=== PATIENT | female | born 1970 | race Caucasian/White ===

== ENCOUNTER 2021-01-20 22:58 | Emergency (ER) | payer OTHER ==
--- NOTE | 2021-01-20 23:14 | EDM.PDOC ---
ED HPI GENERAL MEDICAL PROBLEM - General Stated Complaint: LEFT SIDED CRAMPING Time Seen by Provider: 01/20/21 23:14 Source of Information: Reports: Patient History Limitations: Reports: No Limitations - History of Present Illness INITIAL COMMENTS - FREE TEXT/NARRATIVE: 51-year-old female who reports on Thursday late morning and early afternoon she developed cramping and sharp and stabbing pain in her left mid back, flank and lateral abdomen and she started having more severe pain that seemed to wrap around from her flank area to her left abdominal area. It also seemed to be somewhat colicky in nature. She felt that she had to urinate more frequently but did not notice any blood in her urine. She has had small bowel movements but she has had no blood in her bowel movements. There has been no nausea or vomiting. The pain is currently a 7/10 with sharp spikes in her pain intermittently he states that she also has pain in her right mid to lower back that is worse with movement is somewhat different than the pain in her left side. The pain in her left side is somewhat worse with movement but seems to come and go on its own. No fevers or chills. She has been eating and drinking normally. No trauma to the area. No cough. No shortness of breath. No rashes. There are no other associated signs or symptoms. There are no other modifying factors. 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.) Left Abdomen Pain Score (Numeric/FACES): 9 - Related Data Allergies Allergy/AdvReac Type Severity Reaction Status Date / Time No Known Allergies Allergy Verified 01/20/21 23:13 Home Meds: Home Meds Ketotifen [Ketotifen 0.025% Ophth Soln] 2 drop EYEBOTH BID PRN 01/20/21 [History] Loratadine 10 mg PO DAILY 01/20/21 [History] Losartan [Cozaar] 100 mg PO DAILY 01/20/21 [History] Potassium Chloride 2 tab PO BID 01/20/21 [History] Triamcinolone Acetonide [Triamcinolone Acetonide 0.1% Crm] 1 each TOP DAILY PRN 01/20/21 [History] amLODIPine Besylate [Norvasc] 10 mg PO DAILY 01/20/21 [History] atorvaSTATin Calcium [Lipitor] 10 mg PO BEDTIME 01/20/21 [History] hydroCHLOROthiazide [Hydrochlorothiazide] 25 mg PO DAILY 01/20/21 [History] metFORMIN [Glucophage] 500 mg PO BID 01/20/21 [History] Tamsulosin [Tamsulosin 24 Hr] 0.4 mg PO DAILY #7 cap.er 01/21/21 [Rx] Past Medical History Cardiovascular History: Reports: High Cholesterol, Hypertension Endocrine/Metabolic History: Reports: Diabetes, Type II, Obesity/BMI 30+ - Past Surgical History HEENT Surgical History: Reports: Oral Surgery Social & Family History - Tobacco Use Tobacco Use Status *Q: Unknown Ever Used Tobacco (Nonsmoker.) - Alcohol Use Alcohol Use History: No - Living Situation & Occupation Occupation: Employed (Works at [employer]) ED ROS GENERAL - Review of Systems Review Of Systems: See Below Constitutional: Denies: Fever, Chills HEENT: Denies: Throat Pain, Throat Swelling Respiratory: Denies: Shortness of Breath, Cough Cardiovascular: Denies: Chest Pain, Palpitations GI/Abdominal: Reports: Abdominal Pain. Denies: Bloody Stool, Diarrhea, Nausea, Vomiting : Reports: Flank Pain, Frequency. Denies: Dysuria Musculoskeletal: Reports: Back Pain. Denies: Neck Pain Skin: Denies: Diaphoresis, Rash Neurological: Denies: Dizziness, Headache Psychiatric: Denies: Anxiety Hematologic/Lymphatic: Denies: Easy Bleeding, Easy Bruising ED EXAM, GI/ABD - Physical Exam Exam: See Below Exam Limited By: No Limitations General Appearance: Alert, Moderate Distress (Appears in some pain. Nontoxic appearing.), Obese Eyes: Bilateral: Normal Appearance, EOMI Ears: Normal External Exam, Hearing Grossly Normal Nose: Normal Inspection, Normal Mucosa, No Blood Throat/Mouth: Normal Inspection, Normal Oropharynx, Normal Voice, No Airway Compromise Head: Atraumatic, Normocephalic Neck: Normal Inspection, Supple, Non-Tender, Full Range of Motion Respiratory/Chest: No Respiratory Distress, Lungs Clear, Normal Breath Sounds, No Accessory Muscle Use, Chest Non-Tender Cardiovascular: Normal Peripheral Pulses, Regular Rate, Rhythm, No Murmur GI/Abdominal Exam: Normal Bowel Sounds, Soft, No Mass, Tender (Tender in left upper quadrant and left flank and left mid abdomen.). No: Guarding, Rebound Back Exam: Normal Inspection, Full Range of Motion. No: CVA Tenderness (R), CVA Tenderness (L) Extremities: Normal Inspection, Normal Range of Motion, Non-Tender, No Pedal Edema, Normal Capillary Refill Neurological: Alert, Oriented, CN II-XII Intact, Normal Cognition, No Motor/Sens ory Deficits Psychiatric: Normal Affect Skin Exam: Warm, Dry, Intact, Normal Color, No Rash Course - Vital Signs Last Recorded V/S: Last Vital Signs Temp 37.2 C 01/20/21 23:00 Pulse 90 01/20/21 23:00 Resp 18 01/20/21 23:00 BP 158/95 H 01/20/21 23:00 Pulse Ox 99 01/20/21 23:00 - Orders/Labs/Meds Orders: Active Orders 24 hr Category Date Time Status Abdomen Pelvis wo Cont [CT] Stat Exams 01/21/21 00:03 Taken Sodium Chloride 0.9% [Saline Flush] Med 01/20/21 23:52 Active 10 ml FLUSH ASDIRECTED PRN Peripheral IV Insertion Adult [OM.PC] Routine Oth 01/20/21 23:52 Ordered Medication Orders Sodium Chloride (Sodium Chloride 0.9% 10 Ml Syringe) 10 ml FLUSH ASDIRECTED PRN PRN Reason: Keep Vein Open Labs: Laboratory Tests 01/20/21 01/20/21 01/20/21 Range/Units 00:01 00:01 00:01 WBC 8.7 (3.0-10.3) x10-3/uL RBC 4.70 (3.60-5.20) x10(6)uL Hgb 12.8 (11.4-15.5) g/dL Hct 38.3 (34.2-48.2) % MCV 81.4 (76.7-100.5) fL MCH 27.3 (23.9-33.9) pg MCHC 33.6 (31.9-34.8) g/dL RDW 14.0 (12.3-16.5) % Plt Count 214 (151-488) x10(3)uL MPV 7.8 (7.1-12.4) fL Neut % (Auto) 76.4 H (30.8-76.2) % Lymph % (Auto) 14.7 L (18.4-52.1) % [place] % (Auto) 6.8 (4.4-15.7) % Eos % (Auto) 1.9 (0.6-8.1) % Baso % (Auto) 0.2 (0.2-1.5) % Neut # (Auto) 6.7 H (1.5-6.3) x10-3/uL Lymph # (Auto) 1.3 (1.0-4.4) x10-3/uL [place] # (Auto) 0.6 (0.3-1.0) x10-3/uL Eos # (Auto) 0.2 (0.0-0.8) x10-3/uL Baso # (Auto) 0.0 (0.0-0.1) x10-3/uL Sodium 143 (135-145) mmol/L Potassium 3.5 (3.5-5.3) mmol/L Chloride 106 (100-110) mmol/L Carbon Dioxide 27 (21-32) mmol/L BUN 14 (7-18) mg/dL Creatinine 1.3 H (0.55-1.02) mg/dL Est Cr Clr Drug Dosing TNP Estimated GFR (MDRD) 43 L (>60) BUN/Creatinine Ratio 10.8 (9-20) Glucose 145 H (80-116) mg/dL Calcium 9.0 (8.6-10.2) mg/dL Total Bilirubin 0.5 (0.1-1.3) mg/dL AST 32 H (5-25) IU/L ALT 54 H (12-36) U/L Alkaline Phosphatase 88 (56-112) IU/L C-Reactive Protein 0.5 (0.5-0.9) mg/dL Total Protein 6.9 (6.0-8.0) g/dL Albumin 3.4 L (3.5-5.2) g/dL Globulin 3.5 g/dL Albumin/Globulin Ratio 1.0 Lipase 95 (73-393) U/L Urine Color (YELLOW) Urine Appearance (CLEAR) Urine pH (5.0-6.5) Ur Specific [place] (1.010-1.025) Urine Protein (NEGATIVE) mg/dL Urine Glucose (UA) (NORMAL) mg/dL Urine Ketones (NEGATIVE) mg/dL Urine Occult Blood (NEGATIVE) Urine Nitrite (NEGATIVE) Urine Bilirubin (NEGATIVE) Urine Urobilinogen (NEGATIVE) mg/dL Ur Leukocyte Esterase (NEGATIVE) Urine RBC (0-5) Urine WBC (0-5) Ur Squamous Epith Cells (NS,R,O) Urine Bacteria (NS) Urine HCG, Qual (NEGATIVE) 01/20/21 01/20/21 Range/Units 23:15 23:15 WBC (3.0-10.3) x10-3/uL RBC (3.60-5.20) x10(6)uL Hgb (11.4-15.5) g/dL Hct (34.2-48.2) % MCV (76.7-100.5) fL MCH (23.9-33.9) pg MCHC (31.9-34.8) g/dL RDW (12.3-16.5) % Plt Count (151-488) x10(3)uL MPV (7.1-12.4) fL Neut % (Auto) (30.8-76.2) % Lymph % (Auto) (18.4-52.1) % [place] % (Auto) (4.4-15.7) % Eos % (Auto) (0.6-8.1) % Baso % (Auto) (0.2-1.5) % Neut # (Auto) (1.5-6.3) x10-3/uL Lymph # (Auto) (1.0-4.4) x10-3/uL [place] # (Auto) (0.3-1.0) x10-3/uL Eos # (Auto) (0.0-0.8) x10-3/uL Baso # (Auto) (0.0-0.1) x10-3/uL Sodium (135-145) mmol/L Potassium (3.5-5.3) mmol/L Chloride (100-110) mmol/L Carbon Dioxide (21-32) mmol/L BUN (7-18) mg/dL Creatinine (0.55-1.02) mg/dL Est Cr Clr Drug Dosing Estimated GFR (MDRD) (>60) BUN/Creatinine Ratio (9-20) Glucose (80-116) mg/dL Calcium (8.6-10.2) mg/dL Total Bilirubin (0.1-1.3) mg/dL AST (5-25) IU/L ALT (12-36) U/L Alkaline Phosphatase (56-112) IU/L C-Reactive Protein (0.5-0.9) mg/dL Total Protein (6.0-8.0) g/dL Albumin (3.5-5.2) g/dL Globulin g/dL Albumin/Globulin Ratio Lipase (73-393) U/L Urine Color Yellow (YELLOW) Urine Appearance Slightly cloudy (CLEAR) Urine pH 8.0 H (5.0-6.5) Ur Specific [place] 1.015 (1.010-1.025) Urine Protein Negative (NEGATIVE) mg/dL Urine Glucose (UA) Normal (NORMAL) mg/dL Urine Ketones Negative (NEGATIVE) mg/dL Urine Occult Blood Negative (NEGATIVE) Urine Nitrite Negative (NEGATIVE) Urine Bilirubin Negative (NEGATIVE) Urine Urobilinogen Normal (NEGATIVE) mg/dL Ur Leukocyte Esterase Negative (NEGATIVE) Urine RBC 0-5 (0-5) Urine WBC 0-5 (0-5) Ur Squamous Epith Cells Occasional (NS,R,O) Urine Bacteria Few H (NS) Urine HCG, Qual Negative (NEGATIVE) Meds: Medications Generic Name Dose Route Start Last Admin Trade Name Freq PRN Reason Stop Dose Admin Sodium Chloride 10 ml 01/20/21 23:52 Sodium Chloride 0.9% 10 Ml Syringe FLUSH ASDIRECTED PRN Keep Vein Open Discontinued Medications Generic Name Dose Route Start Last Admin Trade Name Freq PRN Reason Stop Dose Admin Sodium Chloride 1,000 mls @ 999 mls/hr 01/20/21 23:54 01/21/21 00:11 Normal Saline IV 01/21/21 00:54 999 mls/hr .BOLUS ONE Administration Ketorolac Tromethamine 30 mg 01/21/21 00:03 01/21/21 00:11 Ketorolac 30 Mg/Ml Sdv IVPUSH 01/21/21 00:04 30 mg ONETIME ONE Administration - Radiology Interpretation Free Text/Narrative:: CT scan of the abdomen and pelvis without IV contrast showed an obstructing 3 mm stone at the left UVJ producing mild left hydroureteronephrosis. As per the [facility] [place] radiologist. Also a 4.5 cm left adnexal cystic lesion that may represent an ov isabella cyst. - Re-Assessments/Exams Free Text/Narrative Re-Assessment/Exam: 01/21/21 00:45: White blood cell count was 8.7. Hemoglobin is 12.8. Platelet count is normal. Sodium is 143. Potassium is 3.5. BUN is 14 and creatinine is 1.3. Glucose 145. He is mildly elevated at 32 and ALT is 54. Urinalysis had 0-5 white blood cells and 0-5 red blood cells per high-powered field. The urine hCG was negative. The patient was given Toradol 30 mg IV. She is also being given saline 1 L as a bolus. Her pain does appear to be improving. She is being sent for CT scan of her abdomen and pelvis without IV contrast. 01/21/21 01:55: CT scan of the abdomen and pelvis showed a 3 mm stone at the left UVJ producing mild left hydroureteronephrosis. The patient reports she is feeling much improved. The back pain has gone. She does have some lower abdominal pain that is now down to a 4-5/10. No fevers. No nausea or vomiting. No evidence of UTI at this point. I will give the patient Flomax 0.4 mg orally. I did offer to give her something additional for pain but she refused this and wanted to stick with just Tylenol and ibuprofen for now. I will send a prescription for Flomax for the next 7 days. She is to strain all of her urine. She is to save any stones that she may find and take them with her with follow- up with her primary provider. Precautions and reasons for return to the emergency department were discussed with the patient and her significant other while in the emergency department and they were detailed in the patient's discharge instructions. Departure - Departure Time of Disposition: 02:05 Disposition: Home, Self-Care 01 Condition: Good Clinical Impression: Renal colic on left side, Left ureteral calculus, Left ovarian cyst - Discharge Information Prescriptions: Tamsulosin [Tamsulosin 24 Hr] 0.4 mg PO DAILY #7 cap.er Instructions: Kidney Stones, [id number], Renal Colic, [id number], Ovarian Cyst, [id number] Referrals: Mitali Rudd MD [Primary Care Provider] - Additional Instructions: The CT scan showed that you have a kidney stone that has traveled and is in the very bottom of your left ureter about to be passed into your bladder. It is very likely to pass. The CT scan also showed that you have an ovarian cyst on the left side. You will need to follow-up with your primary doctor about this and you may need to have an ultrasound at a later date to check this out more fully. You need to increase your fluid intake. You can take Tylenol and ibuprofen as needed for your pain. Medication as prescribed (Flomax 0.4 mg). This medication should help you with passing your kidney stone. You need to strain all of your urine and if you pass the stone, save it and you should take it to your doctor as they will need to do testing on the stone. You should increase your fluid intake. Follow-up with your primary doctor. Back to the emergency department for severe pain, unrelenting vomiting or any other concerning signs or symptoms. Sepsis Event Note (ED) - Focused Exam Vital Signs: Vital Signs Temp Pulse Resp BP Pulse Ox 01/20/21 23:00 37.2 C 90 18 158/95 H 99 - My Orders Last 24 Hours: My Active Orders 01/20/21 23:52 Sodium Chloride 0.9% [Saline Flush] 10 ml FLUSH ASDIRECTED PRN Peripheral IV Insertion Adult [OM.PC] Routine 01/21/21 00:03 Abdomen Pelvis wo Cont [CT] Stat - Assessment/Plan Last 24 Hours: My Active Orders 01/20/21 23:52 Sodium Chloride 0.9% [Saline Flush] 10 ml FLUSH ASDIRECTED PRN Peripheral IV Insertion Adult [OM.PC] Routine 01/21/21 00:03 Abdomen Pelvis wo Cont [CT] Stat
[2021-01-20] MEDS ORDERED: Sodium Chloride 0.9% 10 ML Syringe FLUSH PRN (23:52)
[2021-01-20] MEDS ORDERED: Sodium Chloride 0.9% 1,000 ML IV ONE (23:54)
[2021-01-21] MEDS ORDERED: Ketorolac 30 MG/ML SDV IVPUSH ONE (00:03)
[2021-01-21] MEDS ORDERED: Tamsulosin 0.4 MG Cap.ER PO ONE (02:00)
== END 2021-01-21 02:19 | disposition home or self-care (01) ==
LOC: FB.ED 22:58
DX: N13.2 Hydronephrosis with renal and ureteral calculous obstruction (principal); N83.202 Unspecified ovarian cyst, left side; E78.00 Pure hypercholesterolemia, unspecified; I10 Essential (primary) hypertension; E66.9 Obesity, unspecified; E11.9 Type 2 diabetes mellitus without complications; Z68.30 Body mass index [BMI] 30.0-30.9, adult; Z79.899 Other long term (current) drug therapy
CPT/HCPCS: 36415; 74176; 80053; 81001; 81025; 83690; 85025; 86140; 96374; 99284; A9270; J1885; J7030

== ENCOUNTER 2022-07-17 21:17 | Emergency (ER) | payer OTHER ==
[2022-07-17] MEDS ORDERED: Acetaminophen/HYDROcodone 325-5 MG Tab PO ONE (21:18)
[2022-07-17] MEDS: Morphine 10 MG/ML SDV IM ONE (21:58)
[2022-07-17] MEDS: hydrOXYzine HCl 50 MG/ML SDV IM ONE (21:58)
== END 2022-07-17 23:10 | disposition home or self-care (01) ==
LOC: FB.ED 21:17
DX: S76.302A Unspecified injury of muscle, fascia and tendon of the posterior muscle group at thigh level, left thigh, initial encounter (principal); E78.00 Pure hypercholesterolemia, unspecified; I10 Essential (primary) hypertension; E11.9 Type 2 diabetes mellitus without complications; E66.9 Obesity, unspecified; Z68.41 Body mass index [BMI] 40.0-44.9, adult; Z79.84 Long term (current) use of oral hypoglycemic drugs; Z79.899 Other long term (current) drug therapy; W18.30XA Fall on same level, unspecified, initial encounter; W01.0XXA Fall on same level from slipping, tripping and stumbling without subsequent striking against object, initial encounter; Y92.214 College as the place of occurrence of the external cause
CPT/HCPCS: 96372; 99282; 99283; A9270; J2270; J3410